=== PATIENT | male | born 1990 | race Asian ===

== ENCOUNTER 2022-09-14 10:31 | Emergency (ER) | payer OTHER ==
[2022-09-14 10:54] VITALS: BP 117/53
--- NOTE | 2022-09-14 12:06 | ED Physician Documentation ---
PD HPI OPHTHO - Stated complaint Stated Complaint: STYE - Chief complaint Chief Complaint: Heent - History obtained from History obtained from: Patient - Additional information Additional information: The patient comes to the emergency department chief complaint of stye for the last 2 weeks. He states that he was seen in the [facility] and they put him on both topical and oral antibiotics and he also was doing some hot packing at first, but has not since he was on the antibiotics. He states he is getting in 2 days and just wants to see if there is anything else he can do for it. He states its not getting worse and in fact the erythema actually seems better than it was, but he does think the size is about the same. No drainage. No visual changes. No facial pain. No fevers. No other complaints at this time PD PAST MEDICAL HISTORY - Allergies Allergies/Adverse Reactions: Allergies Allergy/AdvReac Type Severity Reaction Status Date / Time No Known Drug Allergies Allergy Verified 09/14/22 10:54 PD ED PE NORMAL - Vitals Vital signs reviewed: Yes - General General: Alert and oriented X 3, No acute distress, Well developed/nourished - HEENT HEENT: Atraumatic, PERRL, EOMI, Moist mucous membranes, Other (Older appearing stye mid right lower eyelid. Dark red erythema localized to enlarged area only. Firm core with soft tissue and wrinkly skin overlying. No drainage.No facial erythema or edema) - Neck Neck: Supple, no meningeal sign - Respiratory Respiratory: No respiratory distress - Derm Derm: Warm and dry - Extremities Extremities: No deformity - Neuro Neuro: Alert and oriented X 3 - Psych Psych: Normal mood, Normal affect Results - Vitals Vitals: Oxygen O2 Source Room air PD Medical Decision Making - ED course Complexity details: considered differential, d/w patient ED course: I discussed with the patient that his stye does appear to be resolving, but that this takes time sometimes several weeks. The patient has already been on Both topical and oral antibiotics and has been hot packing. There is both ago to do at this point except to continue hot packing and wait and I explained this to the patient. He is understanding and stable for discharge home. Departure - Departure Disposition: 01 Home, Self Care Clinical Impression: Stye Qualifiers: Laterality: right Eyelid: lower Qualified Code(s): H00.012 - Hordeolum externum right lower eyelid Condition: Stable Instructions: ED Hordeolum Comments: Your stye does appear to have peaked, as the overlying skin is soft and a little bit wrinkly. There is no evidence of infection of the surrounding area. Unfortunately, we do not have any further treatment to offer, as usually, takes several weeks for the symptoms to dissipate, and the symptoms generally go away on their own without any additional intervention. Hot packing will probably be the most helpful for you, and you should try to do it for 30 minutes at a time at least twice a day. Discharge Date/Time: 09/14/22 12:50
== END 2022-09-14 12:50 | disposition home or self-care (01) ==
LOC: ED 10:31
DX: H00.012 Hordeolum externum right lower eyelid (principal)
CPT/HCPCS: 99281; 99282